=== PATIENT | male | born 1980 | race Hispanic/Latino ===

== ENCOUNTER 2019-03-29 07:09 | Emergency (ER) | payer BC ==
[2019-03-29] MEDS ORDERED: COLCHICINE 0.6 MG TAB ONE (07:19)
--- NOTE | 2019-03-29 08:19 | ER ---
Nurse's Notes [facility] Name: Sage Calderon Age: 39 yrs Sex: Male : 1980 Arrival Date: 03/29/2019 Time: 07:11 Bed 20 Private MD: Diagnosis: Gout Presentation: 03/29 07:12 Presenting complaint: Patient states: "I have gout and now it's been bothering my left aa5 knee for like a month but it got worse since yesterday". Pt denies injury to left knee. 07:12 Transition of care: patient was not received from another setting of care. Onset of aa5 symptoms was 2018. Risk Assessment: Do you want to hurt yourself or someone else? Patient reports no desire to harm self or others. Initial Sepsis Screen: Does the patient meet any 2 criteria? No. Patient's initial sepsis screen is negative. Does the patient have a suspected source of infection? No. Patient's initial sepsis screen is negative. Care prior to arrival: None. 07:12 Acuity: ADILENE 4 aa5 07:12 Method Of Arrival: Ambulatory aa5 Historical: - Allergies: 07:15 No Known Allergies; aa5 - Home Meds: 07:15 None [Active]; aa5 - PMHx: 07:15 Gout; aa5 - PSHx: 07:15 Lap band; aa5 - Immunization history:: Adult Immunizations unknown. - Social history:: Smoking status: Patient uses tobacco products, denies chronic smoking, but will smoke occasionally. - Ebola Screening: : No symptoms or risks identified at this time. Screenin:30 Abuse screen: Denies threats or abuse. Nutritional screening: No deficits noted. aa5 Tuberculosis screening: No symptoms or risk factors identified. Fall Risk None identified. Assessment: 07:15 General: Appears comfortable, Behavior is calm, cooperative. Pain: Complains of pain in aa5 left knee Pain does not radiate. Pain currently is 9 out of 10 on a pain scale. Quality of pain is described as sharp, Pain began 1 month ago Is continuous, Aggravated by increased activity, weight bearing. Neuro: Level of Consciousness is awake, alert, obeys commands, Oriented to person, place, time, situation. Cardiovascular: Patient's skin is warm and dry. Respiratory: Airway is patent Respiratory effort is even, unlabored, Respiratory pattern is regular, symmetrical. GI: No signs and/or symptoms were reported involving the gastrointestinal system. : No signs and/or symptoms were reported regarding the genitourinary system. EENT: No signs and/or symptoms were reported regarding the EENT system. Derm: Skin is pink, warm \\T\\ dry. Musculoskeletal: Range of motion: intact in all extremities. 08:10 Reassessment: Pt resting in bed with eyes closed, pt easy to awaken to verbal stimuli, aa5 pt reports pain has improved, rates pain 8/10 on a pain scale. OUTER DIAMETER GRINDER was notified. . 08:45 Reassessment: Patient is alert, oriented x 3, equal unlabored respirations, skin aa5 warm/dry/pink. Patient states feeling better. Vital Signs: 07:15 BP 133 / 84; Pulse 69; Resp 18 S; Temp 98.0(TE); Pulse Ox 98% on R/A; Weight 117.93 kg aa5 (R); Height 5 ft. 6 in. (167.64 cm) (R); Pain 9/10; 08:10 BP 140 / 82; Pulse 70; Resp 16 S; Pulse Ox 98% on R/A; Pain 8/10; aa5 07:15 Body Mass Index 41.96 (117.93 kg, 167.64 cm) aa5 ED Course: 07:11 Patient arrived in ED. ds1 07:12 Arm band placed on Patient placed in an exam room, on a stretcher. aa5 07:12 Patient has correct armband on for positive identification. Bed in low position. Call aa5 light in reach. Side rails up X 1. 07:13 Kalli Villarreal FNP-C [facility] kb 07:13 Emil Painting MD is Attending Physician. kb 07:13 Ricarda Garibay, MANDO is Primary Nurse. aa5 07:24 Triage completed. aa5 08:45 No provider procedures requiring assistance completed. Patient did not have IV access aa5 during this emergency room visit. Administered Medications: 07:20 Drug: Colcrys 1.2 mg Route: PO; aa5 08:10 Follow up: Response: No adverse reaction; Marked relief of symptoms aa5 Outcome: 08:18 Discharge ordered by . kb 08:45 Discharged to home ambulatory, with significant other. aa5 08:45 Condition: improved 08:45 Discharge instructions given to patient, Instructed on discharge instructions, follow up and referral plans. medication usage, Demonstrated understanding of instructions, follow-up care, medications, Prescriptions given X 1. 08:46 Patient left the ED. aa5 Signatures: Kalli Villarreal, DIRECTOR INSTRUMENTATION-C DIRECTOR INSTRUMENTATION-Ckb Ana M Silva ds1 Ricarda Garibay RN RN aa5 Corrections: (The following items were deleted from the chart) 07:24 07:12 Presenting complaint: Patient states: "I have gout and now it's been bothering my aa5 left knee for like a month but it got worse since yesterday". aa5 07:45 07:15 Pulse 69bpm; Resp 18bpm; Spontaneous; Pulse Ox 98% RA; Temp 98.0F Temporal; aa5 117.93 kg Reported; Height 5 ft. 6 in. Reported; BMI: 41.9; Pain 9/10; aa5 08:51 08:20 Reassessment: Pt resting in bed with eyes closed, pt easy to awaken to verbal aa5 stimuli, pt reports pain has improved, rates pain 8/10 on a pain scale. OUTER DIAMETER GRINDER was notified. . aa5
--- NOTE | 2019-03-29 08:19 | EDPHYS ---
Physician Documentation [facility] Name: Sage Calderon Age: 39 yrs Sex: Male : 1980 Arrival Date: 03/29/2019 Time: 07:11 Bed 20 Private MD: ED Physician Emil Painting HPI: 03/29 07:45 This 39 yrs old Male presents to ER via Ambulatory with complaints of Knee kb Pain. 07:45 The patient presents with pain, that is acute. The complaints affect the left knee. kb Context: The problem was sustained at home, gout. Onset: The symptoms/episode began/occurred 1 month(s) ago, and became worse yesterday. Modifying factors: The symptoms are alleviated by nothing. the symptoms are aggravated by nothing. Associated signs and symptoms: The patient has no apparent associated signs or symptoms. Treatment prior to arrival includes: no previous treatment. Severity of symptoms: At their worst the symptoms were moderate, in the emergency department the symptoms are unchanged. The patient has experienced similar episodes in the past. The patient has not recently seen a physician. Pt reports he has a history of gout in his left knee and it has been flaring up for a month. States it has been worse over the last 2 days. . Historical: - Allergies: 07:15 No Known Allergies; aa5 - Home Meds: 07:15 None [Active]; aa5 - PMHx: 07:15 Gout; aa5 - PSHx: 07:15 Lap band; aa5 - Immunization history:: Adult Immunizations unknown. - Social history:: Smoking status: Patient uses tobacco products, denies chronic smoking, but will smoke occasionally. - Ebola Screening: : No symptoms or risks identified at this time. ROS: 07:44 Constitutional: Negative for fever, chills, and weight loss, Cardiovascular: Negative kb for chest pain, palpitations, and edema, Respiratory: Negative for shortness of breath, cough, wheezing, and pleuritic chest pain, Abdomen/GI: Negative for abdominal pain, nausea, vomiting, diarrhea, and constipation, Back: Negative for injury and pain, Skin: Negative for injury, rash, and discoloration, Neuro: Negative for headache, weakness, numbness, tingling, and seizure. 07:44 MS/extremity: Positive for pain, of the left knee. Exam: 07:43 Constitutional: This is a well developed, well nourished patient who is awake, alert, kb and in no acute distress. Head/Face: Normocephalic, atraumatic. ENT: Nares patent. No nasal discharge, no septal abnormalities noted. Tympanic membranes are normal and external auditory canals are clear. Oropharynx with no redness, swelling, or masses, exudates, or evidence of obstruction, uvula midline. Mucous membranes moist. Neck: Trachea midline, no thyromegaly or masses palpated, and no cervical lymphadenopathy. Supple, full range of motion without nuchal rigidity, or vertebral point tenderness. No Meningismus. Chest/axilla: Normal chest wall appearance and motion. Nontender with no deformity. No lesions are appreciated. Cardiovascular: Regular rate and rhythm with a normal S1 and S2. No gallops, murmurs, or rubs. Normal PMI, no JVD. No pulse deficits. Respiratory: Lungs have equal breath sounds bilaterally, clear to auscultation and percussion. No rales, rhonchi or wheezes noted. No increased work of breathing, no retractions or nasal flaring. Abdomen/GI: Soft, non-tender, with normal bowel sounds. No distension or tympany. No guarding or rebound. No evidence of tenderness throughout. Skin: Warm, dry with normal turgor. Normal color with no rashes, no lesions, and no evidence of cellulitis. Neuro: Awake and alert, GCS 15, oriented to person, place, time, and situation. Cranial nerves II-XII grossly intact. Motor strength 5/5 in all extremities. Sensory grossly intact. Cerebellar exam normal. Normal gait. 07:43 Musculoskeletal/extremity: Extremities: grossly normal except: noted in the left knee: pain, ROM: intact in all extremities, Circulation is intact in all extremities. Sensation intact. Weight bearing: able to fully bear weight. Vital Signs: 07:15 BP 133 / 84; Pulse 69; Resp 18 S; Temp 98.0(TE); Pulse Ox 98% on R/A; Weight 117.93 kg aa5 (R); Height 5 ft. 6 in. (167.64 cm) (R); Pain 9/10; 08:10 BP 140 / 82; Pulse 70; Resp 16 S; Pulse Ox 98% on R/A; Pain 8/10; aa5 07:15 Body Mass Index 41.96 (117.93 kg, 167.64 cm) aa5 MDM: 07:13 Patient medically screened. kb 07:43 Data reviewed: vital signs, nurses notes. Data interpreted: Pulse oximetry: on room air kb is 98 %. Interpretation: normal. 08:15 Counseling: I had a detailed discussion with the patient and/or guardian regarding: the kb historical points, exam findings, and any diagnostic results supporting the discharge/admit diagnosis, the need for outpatient follow up, a family practitioner, to return to the emergency department if symptoms worsen or persist or if there are any questions or concerns that arise at home. ED course: pt reports pain has decreased since medication. Administered Medications: 07:20 Drug: Colcrys 1.2 mg Route: PO; aa5 08:10 Follow up: Response: No adverse reaction; Marked relief of symptoms aa5 Disposition: 19:00 Co-signature as Attending Physician, Emil Painting MD. rn Disposition: 03/29/19 08:18 Discharged to Home. Impression: Gout. - Condition is Stable. - Discharge Instructions: Gout, Rjyu-my-Jdyi. - Prescriptions for indomethacin 25 mg Oral capsule - take 1 capsule by ORAL route 3 times per day with food; 21 capsule. - Medication Reconciliation Form, Thank You Letter, Antibiotic Education, Prescription Opioid Use form. - Follow up: Emergency Department; When: As needed; Reason: Worsening of condition. Follow up: Private Physician; When: 2 - 3 days; Reason: Recheck today's complaints, Continuance of care, Re-evaluation by your physician. Signatures: Kalli Villarreal, THERMIT WELDING MACHINE OPERATOR-C THERMIT WELDING MACHINE OPERATOR-Ckb Emil Painting MD MD rn Calderon, Audri, RN RN aa5 Corrections: (The following items were deleted from the chart) 08:46 08:18 03/29/2019 08:18 Discharged to Home. Impression: Gout. Condition is Stable. Forms aa5 are Medication Reconciliation Form, Thank You Letter, Antibiotic Education, Prescription Opioid Use. Follow up: Emergency Department; When: As needed; Reason: Worsening of condition. Follow up: Private Physician; When: 2 - 3 days; Reason: Recheck today's complaints, Continuance of care, Re-evaluation by your physician. kb
[2019-03-29 08:59] VITALS: BP 133/84; TEMP 98; O2SAT 98
== END 2019-03-29 08:46 | disposition home or self-care (01) ==
LOC: ER 07:09
DX: M10.9 Gout, unspecified (principal); Z72.0 Tobacco use
CPT/HCPCS: 99283

== ENCOUNTER 2021-10-06 09:13 | Emergency (ER) | payer BC, SELFPAY ==
--- OUTSIDE RECORDS SUMMARY | 2021-10-06 09:15 | XMS REPORT | Continuity of Care Document ---
:1980 Author Organization [facility] t Address [address] [place] [address] [address] [place] [address] Care Team Providers Name Role Phone Narciso WILLIAMSON Attending Clinician Unavailable Pcp, Does Not Have A Attending Clinician Erickson Carcamo Attending Clinician Pob1, Care Clinic Attending Clinician Unavailable Amaris LUND Attending Clinician AMARIS Attending Clinician Unavailable Payers Payer Name Policy Type Policy Number Effective Date Expiration Date S [facility] [id number] 2018 00:00:00 Problems Condition Condition Condition Status Onset Resolution Last Treating Co mments Source Name Details Category Date Date Treatment Clinician Date Viral Viral Disease Active [facility] illness illness 08 ity of 00:00: [address] Allergies, Adverse Reactions, Alerts Allergy Allergy Status Severity Reaction(s) Onset Inactive Treating Comm ents Source Name Type Date Date Clinician NO KNOWN Drug Active Univers ALLERGIE Class ity of S [facility] Social History Social Habit Start Date Stop Date Quantity Comments Source Sex Assigned At [facility] Alcohol intake 2019-08-30 2019-08-30 [facility] 00:00:00 00:00:00 [facility] Smoking Status Start Date Stop Date Source Never smoker [facility] Medications Ordered Filled Start Stop Current Ordering Indication Dosage Frequency Signature Comments Components Source Medication Medication Date Date Medication? Clinician (SIG) Name Name ALLOPURINOL 2020-0 2020- No Take by U nivers ORAL 08 04-08 mouth. ity of 21:34: 00:00 [place] [facility] :[facility] PREDNISONE 2020-0 Yes Take by Uni vers ORAL 4-08 mouth. ity of 21:34: [place] [facility] COLCHICINE 2020-0 Yes Take by Uni vers ORAL 4-08 mouth. ity of 21:34: [address] PREDNISONE 2020-0 Yes Take by Uni vers ORAL 4-08 mouth. ity of 21:34: [address] COLCHICINE 2020-0 Yes Take by Uni vers ORAL 4-08 mouth. ity of 21:34: [address] PREDNISONE 2020-0 Yes Take by Uni vers ORAL 4-08 mouth. ity of 21:34: [address] COLCHICINE 2020-0 Yes Take by Uni vers ORAL 4-08 mouth. ity of 21:34: [address] PREDNISONE 2020-0 Yes Take by Uni vers ORAL 4-08 mouth. ity of 21:34: [address] COLCHICINE 2020-0 Yes Take by Uni vers ORAL 4-08 mouth. ity of 21:34: [address] ALBUTEROL 2020-0 Yes Inhale. Unive rs INHALE 4-08 ity of 21:29: [address] ALBUTEROL 2020-0 Yes Inhale. Unive rs INHALE 4-08 ity of 21:29: [address] ALBUTEROL 2020-0 Yes Inhale. Unive rs INHALE 4-08 ity of 21:29: [address] ALBUTEROL 2020-0 Yes Inhale. Unive rs INHALE 4-08 ity of 21:29: [address] Vital Signs Vital Name Observation Time Observation Value Comments Source Systolic blood 2019-08-30 21:15:00 133 mm[Hg] Univer sity of pressure [facility] Diastolic blood 2019-08-30 21:15:00 88 mm[Hg] Unive rsity of pressure [facility] Heart rate 2019-08-30 21:15:00 70 /min [facility] Body temperature 2019-08-30 21:15:00 [facility].83 [facility] 2019-08-30 21:15:00 165.1 cm [facility] Body weight 2019-08-30 21:15:00 117.935 kg [facility] BMI 2019-08-30 21:15:00 43.27 kg/m2 [facility] Oxygen saturation in 2019-08-30 21:15:00 97 /min [facility] Arterial blood by [facility] Pulse oximetry Branch Procedures This patient has no known procedures. Encounters Start End Encounter Admission Attending Care Care Encounter Source Date/Time Date/Time Type Type Clinicians Facility Department ID 2020-07-15 2020-07-15 Outpatient R [facility] [id number] Univers 11:00:00 11:00:00 [id number] [facility] 2020-07-15 2020-07-15 Outpatient R [facility] [id number] Univers 11:00:00 11:00:00 JULIO y [facility] 2019-09-01 2019-09-01 Telephone Pcp, [facility] [id number] Univers 00:00:00 00:00:00 Patient Health [id number] it y of Does Not [id number] Profess[place] [id number] [address] Office Building [facility] 2019-09-01 2019-09-01 Telephone Lanre [facility] [id number] Univers 00:00:00 00:00:00 Lisa A Health [id number] i ty of [place] [id number] Brandin as Professio [phone] [address] Office Building [facility] 2019-09-01 2019-09-01 Telephone KYLAH De Dios [id number] Univers 00:00:00 00:00:00 Lisa A YAMILETH [id number] i ty of [facility] [id number] Brandin as [phone] [address] 2019-08-30 2019-08-30 Urgent Pob1, Acute Care Clinic [facility] [id number] Univers 16:03:47 16:44:06 Marco Harvey [id number] ity of [place] [id number] Brandin as Professio [phone] [address] Office Building [facility] 2019-08-30 2019-08-30 [facility] [id number] Univers 16:20:00 16:20:00 MARCO reddy [facility] Results This patient has no known results.
[2021-10-06] MEDS ORDERED: TETRACAINE HCL 0.5% 4ML OPTH ONE (10:35)
[2021-10-06] MEDS ORDERED: FLUORESCEIN SODIUM 1 MG/WRAP ONE (10:35)
[2021-10-06] MEDS ORDERED: TETANUS & DIPHTHERIA TOX,ADULT 0.5 ML VIAL ONE (11:21)
--- NOTE | 2021-10-06 12:13 | EDPHYS ---
Physician Documentation [facility] Name: Sage Calderon Age: 41 yrs Sex: Male : 1980 Arrival Date: 10/06/2021 Time: 09:16 Bed 13 Private MD: STACIA Physician Hussain Peters HPI: 10/06 10:07 This 41 yrs old Male presents to ER via Ambulatory with complaints of Eye Pain.jmm 10:07 The patient is experiencing pain, redness. Onset: The symptoms/episode began/occurred jmm gradually, 2 day(s) ago. Duration: the symptoms are continuous. Aggravated by nothing. Alleviated by nothing. Associated signs and symptoms:. Patient is unsure how his eyes became irritated. Denies infectious exposure. Patient has fb sensation to both eyes with drainage. . Historical: - Allergies: 09:29 No Known Allergies; ll1 - PMHx: 09:29 Gout; Asthma; ll1 - PSHx: 09:29 lap band; ll1 - Immunization history:: Client reports receiving the 2nd dose of the Covid vaccine. - Social history:: Smoking status: Patient denies any tobacco usage or history of. ROS: 10:07 Constitutional: Negative for fever, chills, and weight loss. jmm 10:07 Eyes: Positive for discharge, redness. 10:07 All other systems are negative. Exam: 10:07 Constitutional: This is a well developed, well nourished patient who is awake, alert, jmm and in no acute distress. Head/Face: atraumatic. 10:07 ENT: Moist Mucus Membranes Neck: Trachea midline, Supple Chest/axilla: Normal chest wall appearance and motion. Cardiovascular: Regular rate and rhythm. No edema appreciated Respiratory: Normal respirations, no respiratory distress appreciated Abdomen/GI: Non distended, soft Back: Normal ROM Skin: General appearance color normal MS/ Extremity: Moves all extremities, no obvious deformities appreciated, no edema noted to the lower extremities Neuro: Awake and alert Psych: Behavior is normal, Mood is normal, Patient is cooperative and pleasant 10:07 Eyes: Extraocular movements: intact throughout, Conjunctiva: injected, bilaterally. Vital Signs: 09:30 BP 162 / 101; Pulse 80; Resp 16; Temp 98.1; Pulse Ox 98% ; Weight 127.01 kg; Height 5 ll1 ft. 6 in. (167.64 cm); Pain 9/10; 09:30 Body Mass Index 45.19 (127.01 kg, 167.64 cm) ll1 Visual Acuity: 10:45 Left Eye Visual acuity 20/25, Pupil size 3 mm, Normal, React To Light; Right Eye Visual ww acuity 20/25, Pupil size 3 mm, Normal, React To Light; Both Eyes Visual acuity 20/20; Without Lenses; MDM: 10:07 Patient medically screened. [facility] 12:08 Data reviewed: vital signs, nurses notes. Counseling: I had a detailed discussion with elda the patient and/or guardian regarding: the historical points, exam findings, and any diagnostic results supporting the discharge/admit diagnosis, the need for outpatient follow up, to return to the emergency department if symptoms worsen or persist or if there are any questions or concerns that arise at home. ED course: Patient is alert and non toxic in appearance in the ED. Patient treated with opthalmic abx. Patient otherwise given strict return precautions. Patient understood and agrees with the plan. . 10/06 10:22 Order name: Eye Tray; Complete Time: 10:31 [facility] 10/06 10:22 Order name: Fluoresene Opth strip; Complete Time: 10: [facility] 10/06 10:22 Order name: Visual Acuity; Complete Time: 10:46 [facility] Administered Medications: 11:04 Drug: Tetracaine Drops 0.5 % 1 drops {Note: administered by PA. Denver} Route: ww Ophthalmic; Site: both eyes; 11:21 Drug: Tetanus-Diphtheria Toxoid Adult 0.5 ml {Mushroom Grower: [employer]. Exp: ww 08/02/2023. Lot #: [id number]. } Route: IM; Site: right deltoid; Disposition Summary: 10/06/21 12:13 Discharge Ordered Location: Home [facility] Condition: Stable [facility] Diagnosis - Other acute conjunctivitis [facility] Followup: [facility] - With: Rylan Altamirano MD - When: 2 - 3 days - Reason: Recheck today's complaints, Continuance of care, Re-evaluation by your physician Discharge Instructions: - Discharge Summary Sheet [facility] - Bacterial Conjunctivitis, Adult [facility] Forms: - Medication Reconciliation Form [facility] - Thank You Letter [facility] - Antibiotic Education [facility] - Prescription Opioid Use [facility] Prescriptions: - Erythromycin 5 mg/gram (0.5 %) Ophthalmic Ointment - apply 1 centimeter by OPHTHALMIC route 2-3 times daily for 7 days; 1 tube; [facility] Refills: 0, Product Selection Permitted Signatures: Denver Pascual PA PA jmm Lewis, Lynsay, RN RN ll1 Genoveva Camarillo RN RN ww
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
[2021-10-06 12:53] VITALS: BP 162/101; TEMP 98.1; O2SAT 98
== END 2021-10-06 12:35 | disposition home or self-care (01) ==
LOC: ER 09:13
DX: H10.33 Unspecified acute conjunctivitis, bilateral (principal); Z23 Encounter for immunization
CPT/HCPCS: 90471; 90714; 99283

== ENCOUNTER 2022-03-14 22:49 | Emergency (ER) | payer SELFPAY ==
--- OUTSIDE RECORDS SUMMARY | 2022-03-14 22:52 | XMS REPORT | Continuity of Care Document ---
:1980 Author Organization [facility] t Address [address] [place] [address] [address] [place] [address] Care Team Providers Name Role Phone WILLIAMSONJULIO Attending Clinician Unavailable Pcp, Patient Does Not Have A Attending Clinician [id number] [phone] Lisa Carcamo Attending Clinician Pob1, Acute Care Clinic Attending Clinician Unavailable Filiberto Glez MD Attending Clinician FILIBERTO GLEZ Attending Clinician Unavailable Payers Payer Name Policy Type Policy Number Effective Date Expiration Date S [facility] [id number] 2018 00:00:00 Problems Condition Condition Condition Status Onset Resolution Last Treating Co mments Source Name Details Category Date Date Treatment Clinician Date Viral Viral Disease Active [facility] illness illness 08-29 ity of 00:00: [address] Allergies, Adverse Reactions, Alerts Allergy Allergy Status Severity Reaction(s) Onset Inactive Treating Comm ents Source Name Type Date Date Clinician NO KNOWN Drug Active [facility] ALLERGIE Class ity of [facility] Social History Social Habit Start Date Stop Date Quantity Comments Source Sex Assigned At [facility] Alcohol intake 2019-08-30 2019-08-30 [facility] 00:00:00 00:00:00 [facility] Smoking Status Start Date Stop Date Source Never smoker [facility] Medications Ordered Filled Start Stop Current Ordering Indication Dosage Frequency Signature Comments Components Source Medication Medication Date Date Medication? Clinician (SIG) Name Name ALLOPURINOL 2020-0 2020- No Take by Un saleem ORAL 08 04-08 mouth. ity of 21:34: 00:00 [place] [facility] PREDNISONE 2020-0 Yes Take by Univ ers ORAL 4-08 mouth. ity of 21:34: [place] [facility] COLCHICINE 2020-0 Yes Take by Univ ers ORAL 4-08 mouth. ity of 21:34: [address] PREDNISONE 2020-0 Yes Take by Univ ers ORAL 4-08 mouth. ity of 21:34: [address] COLCHICINE 2020-0 Yes Take by Univ ers ORAL 4-08 mouth. ity of 21:34: [address] PREDNISONE 2020-0 Yes Take by Univ ers ORAL 4-08 mouth. ity of 21:34: [address] COLCHICINE 2020-0 Yes Take by Univ ers ORAL 4-08 mouth. ity of 21:34: [address] PREDNISONE 2020-0 Yes Take by Univ ers ORAL 4-08 mouth. ity of 21:34: [address] COLCHICINE 2020-0 Yes Take by Univ ers ORAL 4-08 mouth. ity of 21:34: [address] ALBUTEROL 2020-0 Yes Inhale. Unive rs INHALE 4-08 ity of 21:29: [address] ALBUTEROL 2020-0 Yes Inhale. Unive rs INHALE 4-08 ity of 21:29: [address] ALBUTEROL 2020-0 Yes Inhale. Unive rs INHALE 4-08 ity of 21:29: [address] ALBUTEROL 2020-0 Yes Inhale. Unive rs INHALE 4-08 ity of 21:29: [address] Vital Signs Vital Name Observation Time Observation Value Comments Source Systolic blood 2019-08-30 21:15:00 133 mm[Hg] Univer sity of pressure [facility] Diastolic blood 2019-08-30 21:15:00 88 mm[Hg] Unive rsity of pressure [facility] Heart rate 2019-08-30 21:15:00 70 /min [facility] Body temperature 2019-08-30 21:15:[address] [facility] Body height 2019-08-30 21:15:00 165.1 cm [facility] Body weight 2019-08-30 21:15:00 117.935 kg [facility] BMI 2019-08-30 21:15:00 43.27 kg/m2 [facility] Oxygen saturation in 2019-08-30 21:15:00 97 /min [facility] blood by [facility] Pulse oximetry Branch Procedures This patient has no known procedures. Encounters Start End Encounter Admission Attending Care Care Encounter Source Date/Time Date/Time Type Type Clinicians Facility Department ID 2020-07-15 2020-07-15 Outpatient R TERI [facility] [id number] Univers 11:00:00 11:00:00 JULIO reddy [facility] 2019-09-01 2019-09-01 Telephone Pcp, [facility] [id number] Univers 00:00:00 00:00:00 Patient Health [id number] it y of Does Not [id number] [id number] [address] Office [facility] 2019-09-01 2019-09-01 Telephone Lanre, [facility] [id number] Univers 00:00:00 00:00:00 Lisa A Health [id number] i ty of [place] [id number] Brandin as Professio [id number] [address] Office [facility] 2019-09-01 2019-09-01 Telephone Lanre KYLAH [id number] Univers 00:00:00 00:00:00 Lisa Erickson YAMILETH [id number] i ty of [facility] [id number] Brandin as [id number] [address] 2019-08-30 2019-08-30 Urgent Pob1, Acute Care Clinic [facility] [id number] Univers 16:03:47 16:44:06 Filiberto Harvey [facility] [id number] ity of [place] [id number] Brandin as Professio [id number] [address] Office Building [facility] 2019-08-30 2019-08-30 Outpatient R DANILO [facility] [id number] Univers 16:20:00 16:20:00 FILIBERTO reddy [facility] Results This patient has no known results.
[2022-03-14] MEDS ORDERED: NA CHLORIDE 0.9% 1,000 ML ONE (23:02)
[2022-03-14 23:16] LABS: Absolute Lymphocytes (CBC) 5.2 K/uL (0.7-4.9); Hematocrit 50.6 % (39.6-49.0); Lymphocytes % 40.9 % (15.3-44.8); MCV 93.5 fL (80-100); MPV 9.6 fL (7.6-11.3); RBC Red Blood Cell Count 5.41 M/uL (4.33-5.43)
[2022-03-14] MEDS ORDERED: TETANUS & DIPHTHERIA TOX,ADULT 0.5 ML VIAL ONE (23:25)
[2022-03-14] MEDS ORDERED: NA CHLORIDE 0.9% 100 ML IV ONE (23:25)
[2022-03-14] MEDS ORDERED: CEFAZOLIN SODIUM 1 GM/VIAL ONE (23:25)
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
--- NOTE | 2022-03-14 23:34 | RAD REPORT ---
EXAM DESCRIPTION: Blairt Single View03/14/2022 11:07 pm CLINICAL HISTORY: Chest pain COMPARISON: none FINDINGS: Elevation of the right hemidiaphragm with right basilar atelectasis Left lung appears clear. Heart is normal size
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
[2022-03-14 23:42] LABS: Albumin 3.6 g/dL (3.4-5.0); Bilirubin Direct 0.1 mg/dL (0-0.2); Bilirubin Total 0.5 mg/dL (0.2-1.0); Potassium 3.6 mmol/L (3.5-5.1); Protein, Total 8.1 g/dL (6.4-8.2)
[2022-03-15] MEDS ORDERED: SODIUM HYPOCHLORITE 0.5% 473 ML ONE (00:03)
[2022-03-15 00:57] LABS: Urine Blood Negative (Negative); Urine Glucose Negative (Negative); Urine Protein Negative (Negative)
[2022-03-15 01:06] VITALS: TEMP 97.9; O2SAT 100
[2022-03-15 01:12] VITALS: BP 165/115
[2022-03-15 01:12] LABS: Urine Bacteria <20 /HPF (<20); Urine Mucus Slight /HPF (None Seen); Urine RBC <5 /HPF (None Seen)
[2022-03-15 01:15] LABS: Barbiturates NEGATIVE (NEGATIVE); Benzodiazepines NEGATIVE (NEGATIVE); Cocaine POSITIVE (NEGATIVE); METHAMPHETAM NEGATIVE (NEGATIVE); Methadone NEGATIVE (NEGATIVE); Opiates NEGATIVE (NEGATIVE); Phencyclidine NEGATIVE (NEGATIVE); THC Cannibis NEGATIVE (NEGATIVE)
--- NOTE | 2022-03-16 18:41 | EKG ---
Test Date: 2022-03-14 Test Time: 22:47:30 Marketing Agent: MEASUREMENT RESULTS: Intervals: Rate: 108 FL: 172 QRSD: 88 QT: 340 QTc: 455 [place]: P: 24 FL: 172 QRS: -45 T: 41 INTERPRETIVE STATEMENTS: Sinus tachycardia Left anterior fascicular block Abnormal ECG No previous ECG available for comparison Electronically Signed On 03-16-22 18:38:18 CDT by Franki Joel
== END 2022-03-15 00:53 | disposition home or self-care (01) ==
LOC: ER 22:49
DX: S21.232A Puncture wound without foreign body of left back wall of thorax without penetration into thoracic cavity, initial encounter (principal); F10.129 Alcohol abuse with intoxication, unspecified; Y04.8XXA Assault by other bodily force, initial encounter
CPT/HCPCS: 36415; 71045; 71260; 74018; 74177; 80048; 80076; 80307; 80320; 80329; 81003; 81015; 83690; 85025; 86850; 86900; 86901; 90471; 90714; 93005; 96361; 96365; 99291; G0390; J0690; J7030; Q9967